=== PATIENT | male | born 1970 | race Caucasian/White ===

== ENCOUNTER → 2017-05-21 | Outpatient (REF) | payer OTHER ==
[~2017-05-21] MED LIST: KEFL500C17 PO; SULF1POW
== END ==
LOC: M LAB REF 16:52 → EEVIPCON 16:52
PROVIDERS: ATTEND Nurse Practitioner Family
DX: H92.02 Otalgia, left ear (principal)

== ENCOUNTER 2017-06-09 13:32 | Emergency (ER) | payer BC, OTHER ==
[~2017-06-09] VITALS: Ht 185.4 cm; Wt 77.3 kg
[2017-06-09] MEDS ORDERED: SULF1POW (13:43)
[2017-06-09] MEDS ORDERED: ETHYL CHLORIDE TOP ONE (14:30)
[2017-06-09] MEDS ORDERED: KEFL500C17 PO (14:43)
[2017-06-09 14:51] VITALS: BP 138/78
== END 2017-06-09 14:54 | disposition home or self-care (01) ==
LOC: M ED 13:32
DX: L02.01 Cutaneous abscess of face (principal); Z86.14 Personal history of Methicillin resistant Staphylococcus aureus infection

== ENCOUNTER → 2017-07-13 | Outpatient (REF) | payer BC, OTHER | LOC: M LAB REF 12:48 | PROVIDERS: ATTEND Nurse Practitioner Family | DX: L98.9 Disorder of the skin and subcutaneous tissue, unspecified (principal) ==

== ENCOUNTER → 2017-12-28 | Outpatient (CLI) | payer BC, OTHER | LOC: M WUC 14:46 | DX: F17.210 Nicotine dependence, cigarettes, uncomplicated (principal); R12 Heartburn | CPT/HCPCS: 71046 ==

== ENCOUNTER → 2019-05-12 | Outpatient (REF) | payer MEDICAID, OTHER | LOC: M LAB REF 16:31 | PROVIDERS: ATTEND Internal Medicine | DX: L03.90 Cellulitis, unspecified (principal) ==

== ENCOUNTER 2025-06-17 22:01 | Emergency (ER) | payer OTHER, SELFPAY ==
[~2025-06-17] VITALS: Ht 185.4 cm; Wt 84.1 kg
[2025-06-17 23:10] LABS: PLATELET COUNT, AUTOMATED 184 10^3/uL (150-450)
[2025-06-17 23:18] LABS: AMPHETAMINES LEVEL URINE NEGATIVE (NEGATIVE); BARBITURATES URINE NEGATIVE (NEGATIVE); BENZODIAZEPINES URINE NEGATIVE (NEGATIVE); COCAINE METABOLITE URINE NEGATIVE (NEGATIVE); METHADONE URINE NEGATIVE (NEGATIVE); OPIATES URINE NEGATIVE (NEGATIVE); PHENCYCLIDINE URINE NEGATIVE (NEGATIVE)
[2025-06-17 23:19] LABS: CANNABINOIDS URINE POSITIVE (NEGATIVE)
[2025-06-18 00:05] LABS: ALT/SGPT 24 U/L (7.0-40); AST/SGOT 56 U/L (<34); CALCIUM LEVEL 9.7 MG/DL (8.5-10.1); CARBON DIOXIDE LEVEL 28 MMOL/L (20-31); CHLORIDE LEVEL 107 MMOL/L (98-107); CREATININE FOR GFR 0.70 MG/DL (0.70-1.30); GLOMERULAR FILTRATION RATE > 90.0 (>56); POTASSIUM SERUM 4.6 MMOL/L (3.5-5.1); SALICYLATE LEVEL < 3.0 MG/DL (<30); SODIUM LEVEL 144 MMOL/L (136-145)
[2025-06-18 00:46] LABS: ETHYL ALCOHOL (ETHANOL) 0.393 % (0.000-0.010)
[2025-06-18] MEDS ORDERED: FOLIC ACID 1 MG TAB PO SCH (09:00)
[2025-06-18] MEDS ORDERED: THIAMINE 100 MG TAB PO SCH (09:00)
[2025-06-18] MEDS ORDERED: MULTIVITAMINS/MINERALS THERAP 1 TAB PO SCH (09:00)
[2025-06-18 10:35] VITALS: BP 177/92; TEMP 98.5; O2SAT 97
== END 2025-06-18 10:51 | disposition home or self-care (01) ==
LOC: M ED 22:01 → EEVIPCON 22:01 → M ED 06-18 10:51
DX: F10.14 Alcohol abuse with alcohol-induced mood disorder (principal)